=== PATIENT | female | born 1995 | race Caucasian/White ===

== ENCOUNTER 2016-08-20 14:37 | Emergency (ER) | payer OTHER ==
[2016-08-20 14:42] VITALS: BP 130/73; PULSE 102; TEMP 98; BMI 19.5
--- NOTE | 2016-08-20 15:11 | PDOC ---
History of Present Illness - History of Present Illness Initial Comments: 08/20/16 15:38 The patient is a 21 year old female, with a significant past medical history left ovarian cyst (Dx 2 months ago), who presents to the emergency department with discomfort to her suprapubic region, mild sore throat, dysuria, and vagnial discharge today requesting for STD screen. The patient reports she is in a new monogamous relationship, last report of unprotected vaginal intercourse 2 days ago, however, she denies having been tested for STD prior to initiating the new relationship. She reports her suprapubic pain is bilateral, dull, but worse on the left and exacerbated with lying flat and with vaginal sex. She denies pain at rest. The patient reports a mild sore throat and states she had a throat swab at an ENT office earlier today, but states she does not know the results of the test. She also reports vaginal itching and burning on urination today. She reports her vaginal discharge is thick and nasty. She denies any other symptoms. LMP: 08/09/16 She denies chest pain, shortness of breath, headache and dizziness. She denies fever, chills, nausea, vomit, diarrhea and constipation. She denies frequency, urgency and hematuria. 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 Sierra <Vilma Bond - Last Filed: 08/20/16 15:38> <Emiliana Roca - Last Filed: 08/20/16 16:01> - General Chief Complaint: Pain Stated Complaint: TEST SCREENING Time Seen by Provider: 08/20/16 15:04 Past History <Vilma Bond - Last Filed: 08/20/16 15:38> - Past Medical History Other medical history: lt ovarian cyst - Psycho/Social/Smoking Cessation Hx Anxiety: No Suicidal Ideation: No Smoking History: Never smoked Have you smoked in the past 12 months: Yes Number of Cigarettes Smoked Daily: 5 Information on smoking cessation initiated: Yes 'Breaking Loose' booklet given: 08/20/16 Hx Alcohol Use: No Drug/Substance Use Hx: No Substance Use Type: None <Emiliana Roca - Last Filed: 08/20/16 16:01> - Past Medical History Allergies/Adverse Reactions: Allergies Allergy/AdvReac Type Severity Reaction Status Date / Time No Known Allergies Allergy Verified 08/20/16 14:39 Review of Systems - Review of Systems Able to Perform ROS?: Yes HEENTM: Yes: Symptoms Reported, Throat Pain. No: Nose Congestion, Throat Swelling, Mouth Pain, Difficulty Swallowing, Mouth Swelling Respiratory: No: Symptoms reported Cardiac (ROS): No: Symptoms Reported ABD/GI: No: Symptoms Reported : Yes: Symptoms Reported, Burning, Dysuria, Discharge, Pain (bilateral suprapubic pain) Musculoskeletal: No: Symptoms Reported Integumentary: No: Symptoms Reported Neurological: No: Symptoms reported Endocrine: No: Symptoms Reported <Vilma Bond - Last Filed: 08/20/16 15:38> *Physical Exam - Vital Signs Last Vital Signs Temp Pulse Resp BP Pulse Ox 98.0 F 102 H 18 130/73 100 08/20/16 14:40 08/20/16 14:40 08/20/16 14:40 08/20/16 14:40 08/20/16 14:40 - Physical Exam Comments: 08/20/16 15:40 GENERAL: Well developed, well nourished. Awake and alert. No acute distress. HEENT: (+) 3+ tonsillar edema bilaterally with exudates to right tonsils. oropharynx is erythematous. Normocephalic, atraumatic. PERRLA, EOMI. No conjunctival pallor. Sclera are non-icteric. Moist mucous membranes. NECK: Supple. Full ROM. No JVD. Carotid pulses 2+ and symmetric, without bruits. No thyromegaly. No lymphadenopathy. CARDIOVASCULAR: Regular rate and rhythm. No murmurs, rubs, or gallops. Distal pulses are 2+ and symmetric. PULMONARY: No evidence of respiratory distress. Lungs clear to auscultation bilaterally. No wheezing, rales or rhonchi. ABDOMINAL: Soft. Non-tender. Non-distended. No rebound or guarding. No organomegaly. Normoactive bowel sounds. MUSCULOSKELETAL Normal range of motion at all joints. No bony deformities or tenderness. No CVA tenderness. EXTREMITIES: No cyanosis. No clubbing. No edema. No calf tenderness. SKIN: Warm and dry. Normal capillary refill. No rashes. No jaundice. NEUROLOGICAL: Alert, awake, appropriate. Cranial nerves 2-12 intact. Normoreflexic in the upper and lower extremities. Normal speech. Toes are down-going bilaterally. Gait is normal without ataxia. ENTRY LEVEL PROJECT ENGINEER: (+) white discharge in vaginal vault. <Vilma Bond - Last Filed: 08/20/16 15:38> - Vital Signs Last Vital Signs Temp Pulse Resp BP Pulse Ox 98.0 F 102 H 18 130/73 100 08/20/16 14:40 08/20/16 14:40 08/20/16 14:40 08/20/16 14:40 08/20/16 14:40 <Emiliana Roca - Last Filed: 08/20/16 16:01> Medical Decision Making - Medical Decision Making 08/20/16 15:50 21 yo F with no PMH presents to fast track with dyspareunia, vaginal discharge, sore throat. -UA, UCx, Ct/GC Patient had throat cultured earlier at ENT office, states she will f/u with them for results. Will treat for Ct/GC due to patient's c/o of dyspareunia and thick vaginal discharge. -1 g azithromycin -250 mg ceftriaxone Advised patient to f/u with ENT for throat culture. Advised patient of signs and symptoms for return to ER; patient verbalized understanding and agree to plan. <Emiliana Roca - Last Filed: 08/20/16 16:01> *DC/Admit/Observation/Transfer - Attestations Scribe Attestion: 08/20/16 15:43 Documentation prepared by Vilma Bond, acting as medical insurance coder for Emergency Dept, [employer] ATTENDANTEmiliana <Vilma Bond - Last Filed: 08/20/16 15:38> - Discharge Dispostion Admit: No <Emiliana Roca - Last Filed: 08/20/16 16:01> Diagnosis at time of Disposition: Pelvic inflammatory disease (PID), Sore throat - Discharge Dispostion Disposition: HOME Condition at time of disposition: Stable - Referrals Referrals: Wiliam Dee MD [Staff Physician] - - Patient Instructions Printed Discharge Instructions: DI for Pelvic Inflammatory Disease Additional Instructions: Please follow up with ENT for your throat culture as discussed. If you experience any severe vaginal pain, vaginal bleeding, fever, vomiting, diarrhea , or any new or worsening symptoms, please return to the ER.
[2016-08-20] MEDS ORDERED: AZITHROMYCIN 250 MG TABLET (FP) PO ONE (15:38)
[2016-08-20] MEDS ORDERED: AZITHROMYCIN 1 GM PACKET ONE (15:43)
[2016-08-20 16:33] LABS: URINE APPEARANCE CLEAR; URINE BILIRUBIN NEGATIVE (NEGATIVE); URINE BLOOD NEGATIVE (NEGATIVE); URINE COLOR LTYELLOW; URINE GLUCOSE (UA) NEGATIVE (NEGATIVE); URINE KETONE NEGATIVE (NEGATIVE); URINE LEUK ESTERASE NEGATIVE (NEGATIVE); URINE NITRITE NEGATIVE (NEGATIVE); URINE PROTEIN NEGATIVE (NEGATIVE); URINE UROBILINOGEN NEGATIVE E.U./dl (0.2-1.0)
== END 2016-08-20 16:26 | disposition home or self-care (01) ==
LOC: JERFT 14:37
DX: N73.8 Other specified female pelvic inflammatory diseases (principal); N94.19 Other specified dyspareunia; Z11.3 Encounter for screening for infections with a predominantly sexual mode of transmission
CPT/HCPCS: 36415; 81003; 87086; 87491; 87591; 96372; 99281-25

== ENCOUNTER 2018-01-28 18:03 | Emergency (ER) | payer OTHER ==
[2018-01-28 18:35] VITALS: BP 115/62; PULSE 81; TEMP 98.6; BMI 20.3
--- NOTE | 2018-01-28 19:12 | PDOC ---
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 patient reports suprapubic pelvic pain x 2 days. denies Fever/ chills, Nausea, vomiting, diarrhea. no pmhx Past History - Past Medical History Allergies/Adverse Reactions: Allergies Allergy/AdvReac Type Severity Reaction Status Date / Time No Known Allergies Allergy Verified 01/28/18 18:30 Home Medications: Ambulatory Orders Nitrofurantoin Monohyd/M-Cryst [Macrobid -] 100 mg PO BID #10 capsule 01/28/18 COPD: No Other medical history: DENIES - Suicide/Smoking/Psychosocial Hx Smoking History: Current every day smoker Have you smoked in the past 12 months: Yes Number of Cigarettes Smoked Daily: 10 Information on smoking cessation initiated: No 'Breaking Loose' booklet given: 08/20/16 Hx Alcohol Use: No Drug/Substance Use Hx: No Substance Use Type: None Review of Systems - Review of Systems Able to Perform ROS?: Yes Is the patient limited Ukrainian proficient: No ABD/GI: No: Symptoms Reported, See HPI, Abdominal Distended, Abd. Pain w/ defecation, Blood Streaked Bowels, Constipated, Diarrhea, Difficulty Swallowing , Nausea, Poor Appetite, Poor Fluid Intake, Rectal Bleeding, Vomiting, Indigestion, Abdominal cramping, Tarry Stools, Other : Yes: Other (vaginal bleeding) *Physical Exam - Vital Signs Last Vital Signs Temp Pulse Resp BP Pulse Ox 98.6 F 81 19 115/62 100 01/28/18 18:31 01/28/18 18:31 01/28/18 18:31 01/28/18 18:31 01/28/18 18:31 - Physical Exam General Appearance: Yes: Appropriately Dressed Female Pelvic Exam: positive: normal external exam, cervical os closed, CMT ( right pelvic), other (white vaginal discharge, no bleeding in vault) Gastrointestinal/Abdominal: positive: Normal Bowel Sounds, Soft. negative: Tender Musculoskeletal: positive: Normal Inspection. negative: CVA Tenderness Extremity: positive: Normal Capillary Refill, Normal Inspection, Normal Range of Motion Integumentary: positive: Normal Color, Dry, Warm Neurologic: positive: Fully Oriented, Alert, Normal Mood/Affect Moderate Sedation - Procedure Monitoring Vital Signs: Procedure Monitoring Vital Signs Temperature 98.6 F 01/28/18 18:31 Pulse Rate 81 01/28/18 18:31 Respiratory Rate 19 01/28/18 18:31 Blood Pressure 115/62 01/28/18 18:31 O2 Sat by Pulse Oximetry (%) 100 01/28/18 18:31 ED Treatment Course - LABORATORY CBC & Chemistry Diagram: 01/28/18 20:00 01/28/18 20:00 *DC/Admit/Observation/Transfer Diagnosis at time of Disposition: Pelvic pain UTI (urinary tract infection) Qualifiers: Urinary tract infection type: acute cystitis Hematuria presence: without hematuria Qualified Code(s): N30.00 - Acute cystitis without hematuria - Discharge Dispostion Disposition: HOME - Prescriptions Prescriptions: Nitrofurantoin Monohyd/M-Cryst [Macrobid -] 100 mg PO BID #10 capsule - Referrals - Patient Instructions Printed Discharge Instructions: DI for Pelvic Pain Additional Instructions: you may take tylenol of ibuprofen for pain follow up with your obgyn as soon as possible. return to the ER if you having heavy vaginal bleeding where you are soaking 2 pads per hour, severe abdominal pain etc. Additional Instructions: * Please call your personal physician to report your Emergency Department visit and to report your progress, if any. * If there is no improvement in symptoms in 2 days call your physician. * Return to the Emergency Department for any worsening symptoms. - Post Discharge Activity Forms/Work/School Notes: Back to Work
[2018-01-28 20:08] LABS: BASO % 0.7 % (0-2.0); EOS % 0.9 % (0-4.5); HEMATOCRIT 35.1 % (32.4-45.2); HEMOGLOBIN 12.3 GM/dL (10.7-15.3); LYMPH % 33.2 % (8-40); MCHC 35.1 g/dl (32.0-36.0); MEAN CELL VOLUME 91.2 fl (80-96); MEAN PLT VOLUME 10.4 fl (7.5-11.1); MONO % 6.7 % (3.8-10.2); NEUT % 58.5 % (42.8-82.8); PLATELET COUNT 188 K/MM3 (134-434); RBC 3.85 M/mm3 (3.60-5.2); RDW 13.6 % (11.6-15.6)
[2018-01-28 20:31] LABS: INR 1.06 (0.83-1.09); PROTHROMBIN TIME (PATIENT) 12.5 SEC (9.7-13.0)
[2018-01-28 20:33] LABS: ACTIVATED PTT 25.7 SECONDS (25.2-36.5)
[2018-01-28 20:42] LABS: ALK PHOS 37 U/L (45-117); ANION GAP 7 MMOL/L (8-16); BILIRUBIN,TOTAL 0.4 mg/dL (0.2-1); BLOOD UREA NITROGEN 8 mg/dL (7-18); CALCIUM 8.3 mg/dL (8.5-10.1); CHLORIDE 106 mmol/L (98-107); CO2 27 mmol/L (21-32); CREATININE 0.7 mg/dL (0.55-1.3); GLUCOSE,RANDOM 85 mg/dL (74-106); POTASSIUM 4.4 mmol/L (3.5-5.1); SGOT/AST 13 U/L (15-37); SGPT/ALT 16 U/L (13-61); SODIUM 140 mmol/L (136-145); TOT PROT 6.8 g/dl (6.4-8.2)
[2018-01-28 22:43] LABS: URINE APPEARANCE SLCLOUDY; URINE BILIRUBIN NEGATIVE (<2.0 mg/dL); URINE COLOR YELLOW; URINE GLUCOSE (UA) NEGATIVE (NEGATIVE); URINE KETONE NEGATIVE (NEGATIVE); URINE LEUK ESTERASE TRACE (NEGATIVE); URINE NITRITE NEGATIVE (NEGATIVE); URINE PROTEIN 1+ (NEGATIVE); URINE UROBILINOGEN 4.0 E.U/dl mg/dL (0.2-1.0)
[2018-01-28 22:44] LABS: HCG,QUALITATIVE URINE Positive
[2018-01-28 22:45] LABS: EPI CELLS MODERATE /HPF (FEW); URINE MUCUS RARE
== END 2018-01-28 23:02 | disposition home or self-care (01) ==
LOC: JER 18:03
DX: N30.00 Acute cystitis without hematuria (principal); F17.210 Nicotine dependence, cigarettes, uncomplicated
CPT/HCPCS: 36415; 76830-TC; 80053; 81003; 81015; 84702; 84703; 85025; 85610; 85730; 86850; 86900; 86901; 87086; 99282-25